=== PATIENT | male | born 1985 | race Caucasian/White ===

== ENCOUNTER 2017-05-13 11:41 | Emergency (ER) | payer OTHER, BC ==
[~2017-05-13] VITALS: Ht 180.3 cm; Wt 79.4 kg
[~2017-05-13 11:41] MED LIST: KEFLEX500 MG PO
[2017-05-13] MEDS ORDERED: NAPROSYN500 MG PO (12:06)
[2017-05-13] MEDS ORDERED: KEFLEX500 M1 PO (12:06)
== END 2017-05-13 12:30 | disposition home or self-care (01) ==
LOC: ED 11:41
DX: S61.012A Laceration without foreign body of left thumb without damage to nail, initial encounter (principal); R03.0 Elevated blood-pressure reading, without diagnosis of hypertension; W27.8XXA Contact with other nonpowered hand tool, initial encounter; Y93.89 Activity, other specified; Y92.89 Other specified places as the place of occurrence of the external cause; Y99.8 Other external cause status

== ENCOUNTER → 2017-07-19 | Outpatient (CLI) | payer BC ==
[~2017-07-19] MED LIST changes: +KEFLEX500 M1 PO; +NAPROSYN500 MG PO
[2017-07-19 09:23] LABS: BASO # 0.1 10*3/uL (0.0-0.1); BASO % 0.7 % (0.0-1.0); EOS # 0.4 10*3/uL (0.0-0.4); HEMOGLOBIN 15.1 g/dl (14.0-18.0); LYMPH # 3.1 10*3/uL (1.3-4.4); LYMPH % 37.7 % (27.0-41.0); MEAN CELL VOLUME 95.5 fl (80.0-94.0); MEAN CORPUSCULAR HGB 32.1 pg (27.0-31.0); MEAN CORPUSCULAR HGB CONC 33.6 g/dl (33.0-37.0); MEAN PLATELET VOLUME 9.8 fl (9.6-12.3); MONO # 0.8 10*3/uL (0.1-1.0); MONO % 10.1 % (3.0-9.0); NEUT # 3.8 10*3/uL (2.3-7.9); NEUT % 46.4 % (47.0-73.0); PLATELET COUNT AUTOMATED 237 10*3/uL (130-400); RED BLOOD COUNT 4.71 10*6/uL (4.50-5.90); RED CELL DISTRI WIDTH 12.2 % (0-14.5); WHITE BLOOD COUNT 8.2 10*3/uL (4.8-10.8)
[2017-07-19 09:26] LABS: ALBUMIN 3.9 gm/dl (3.1-4.5); BILIRUBIN, DIRECT < 0.1 mg/dL (0.0-0.2); BUN 18 mg/dl (7-24); CHOLESTEROL 149 mg/dL (<200); CREATININE 1.07 mg/dL (0.70-1.30); SGOT/AST 18 IU/L (3-35); SGPT/ALT 22 U/L (12-78)
[2017-07-19 09:36] LABS: ALKALINE PHOSPHATASE 67 U/L (45-117); FREE T4 1.02 ng/dl (0.76-1.46); THYROID STIM HORMONE (HS) 0.792 uIU/ml (0.358-4.75); TOTAL PROTEIN 7.5 gm/dL (6.4-8.2)
== END | disposition home or self-care (01) ==
LOC: LAB 07:53
PROVIDERS: Internal Medicine
DX: E55.9 Vitamin D deficiency, unspecified (principal); R53.83 Other fatigue; R41.3 Other amnesia; Z79.1 Long term (current) use of non-steroidal anti-inflammatories (NSAID)

== ENCOUNTER → 2017-10-05 | Outpatient (CLI) | payer BC | END | disposition home or self-care (01) | LOC: RESCLI 00:35 | DX: F90.0 Attention-deficit hyperactivity disorder, predominantly inattentive type (principal) ==

== ENCOUNTER → 2017-11-03 | Outpatient (CLI) | payer BC | END | disposition home or self-care (01) | LOC: RESCLI 01:37 | DX: Z00.01 Encounter for general adult medical examination with abnormal findings (principal); F90.0 Attention-deficit hyperactivity disorder, predominantly inattentive type; Z87.891 Personal history of nicotine dependence; Z79.899 Other long term (current) drug therapy ==

== ENCOUNTER → 2017-12-01 | Outpatient (CLI) | payer BC | END | disposition home or self-care (01) | LOC: RESCLI 04:34 | DX: Z00.00 Encounter for general adult medical examination without abnormal findings (principal); F90.0 Attention-deficit hyperactivity disorder, predominantly inattentive type; F12.90 Cannabis use, unspecified, uncomplicated ==

== ENCOUNTER → 2018-03-08 | Outpatient (CLI) | payer BC | END | disposition home or self-care (01) | LOC: RESCLI 07:45 | DX: Z76.0 Encounter for issue of repeat prescription (principal); F90.0 Attention-deficit hyperactivity disorder, predominantly inattentive type; Z88.8 Allergy status to other drugs, medicaments and biological substances; Z79.899 Other long term (current) drug therapy ==

== ENCOUNTER → 2018-03-31 | Outpatient (CLI) | payer BC ==
[2018-03-31 12:09] LABS: BILIRUBIN NEGATIVE (NEGATIVE); BLOOD TRACE-INTACT (NEGATIVE); CLARITY CLEAR (CLEAR); COLOR YELLOW (YELLOW); GLUCOSE NEGATIVE (NEGATIVE); KETONE NEGATIVE (NEGATIVE); LEUKO ESTERASE NEGATIVE (NEGATIVE); NITRITE NEGATIVE (NEGATIVE); SPECIFIC GRAVITY 1.025 (1.005-1.030); UROBILINOGEN 0.2 E.U./dl (0.2-1.0)
[2018-03-31 12:18] LABS: BACTERIA TRACE; MUCOUS 1+; RBC 31-40 rbc/hpf (0-2)
== END | disposition home or self-care (01) ==
LOC: LAB 11:53
PROVIDERS: Emergency Medicine
DX: R10.9 Unspecified abdominal pain (principal)

== ENCOUNTER → 2018-04-03 | Outpatient (CLI) | payer BC | END | disposition home or self-care (01) | LOC: CT 16:00 | DX: Q63.1 Lobulated, fused and horseshoe kidney (principal) ==

== ENCOUNTER → 2018-04-03 | Outpatient (CLI) | payer BC ==
[2018-04-03 13:45] LABS: BASO # 0.1 10*3/uL (0.0-0.1); BASO % 0.6 % (0.0-1.0); EOS # 0.4 10*3/uL (0.0-0.4); EOS % 3.8 % (1.0-4.0); HEMATOCRIT 45.7 % (42.0-52.0); HEMOGLOBIN 15.9 g/dl (14.0-18.0); LYMPH # 3.1 10*3/uL (1.3-4.4); LYMPH % 32.8 % (27.0-41.0); MEAN CORPUSCULAR HGB 33.4 pg (27.0-31.0); MEAN CORPUSCULAR HGB CONC 34.8 g/dl (33.0-37.0); MEAN PLATELET VOLUME 9.4 fl (9.6-12.3); MONO # 0.8 10*3/uL (0.1-1.0); MONO % 8.3 % (3.0-9.0); NEUT # 5.1 10*3/uL (2.3-7.9); PLATELET COUNT AUTOMATED 254 10*3/uL (130-400); RED BLOOD COUNT 4.76 10*6/uL (4.50-5.90); RED CELL DISTRI WIDTH 12.1 % (0-14.5); WHITE BLOOD COUNT 9.5 10*3/uL (4.8-10.8)
[2018-04-03 14:02] LABS: ALBUMIN 3.7 gm/dl (3.1-4.5); ALKALINE PHOSPHATASE 65 U/L (45-117); BUN 13 mg/dl (7-24); CHLORIDE 106 mmol/L (98-107); CREATININE 1.12 mg/dL (0.70-1.30); POTASSIUM 4.1 mmol/L (3.5-5.1); SGOT/AST 12 IU/L (3-35); SGPT/ALT 23 U/L (12-78); SODIUM 140 mmol/L (136-145); TOTAL PROTEIN 7.1 gm/dL (6.4-8.2)
== END | disposition home or self-care (01) ==
LOC: LAB 13:17
PROVIDERS: Emergency Medicine
DX: R31.9 Hematuria, unspecified (principal); R10.9 Unspecified abdominal pain

== ENCOUNTER → 2018-04-23 | Outpatient (CLI) | payer BC ==
[2018-04-23 17:21] LABS: BILIRUBIN NEGATIVE (NEGATIVE); BLOOD 1+ (NEGATIVE); CLARITY CLEAR (CLEAR); COLOR YELLOW (YELLOW); GLUCOSE NEGATIVE (NEGATIVE); KETONE NEGATIVE (NEGATIVE); LEUKO ESTERASE NEGATIVE (NEGATIVE); NITRITE NEGATIVE (NEGATIVE); SPECIFIC GRAVITY 1.015 (1.005-1.030); UROBILINOGEN 0.2 E.U./dl (0.2-1.0)
[2018-04-23 17:28] LABS: BACTERIA TRACE; WBC 0-2 wbc/hpf (0-5)
== END | disposition home or self-care (01) ==
LOC: LAB 17:02
PROVIDERS: Emergency Medicine
DX: R31.9 Hematuria, unspecified (principal)

== ENCOUNTER → 2018-10-03 | Outpatient (CLI) | payer BC | END | disposition home or self-care (01) | LOC: RESCLI 01:25 | DX: Z76.0 Encounter for issue of repeat prescription (principal); F90.0 Attention-deficit hyperactivity disorder, predominantly inattentive type; Z79.899 Other long term (current) drug therapy; Z88.8 Allergy status to other drugs, medicaments and biological substances ==

== ENCOUNTER → 2018-12-26 | Outpatient (CLI) | payer SELFPAY | END | disposition home or self-care (01) | LOC: RESCLI 00:42 | DX: F90.0 Attention-deficit hyperactivity disorder, predominantly inattentive type (principal); Z76.0 Encounter for issue of repeat prescription; Z79.899 Other long term (current) drug therapy ==

== ENCOUNTER → 2019-01-30 | Outpatient (CLI) | payer BC | END | disposition home or self-care (01) | LOC: RESCLI 01:38 | DX: F90.0 Attention-deficit hyperactivity disorder, predominantly inattentive type (principal); Z76.0 Encounter for issue of repeat prescription; Z79.899 Other long term (current) drug therapy ==

== ENCOUNTER → 2019-12-24 | Outpatient (CLI) | payer BC | END | disposition home or self-care (01) | LOC: COVID19 10:16 | PROVIDERS: ATTEND Emergency Medicine | DX: R05 Cough (principal); Z20.828 Contact with and (suspected) exposure to other viral communicable diseases ==

== ENCOUNTER → 2021-01-20 | Outpatient (CLI) | payer BC | END | disposition home or self-care (01) | LOC: COVID19 16:04 | PROVIDERS: ATTEND Student in an Organized Health Care Education/Training Program | DX: Z11.52 Encounter for screening for COVID-19 (principal) ==

== ENCOUNTER → 2021-11-26 | Outpatient (CLI) | payer BC | END | disposition home or self-care (01) | LOC: RESCLI 02:17 | PROVIDERS: ATTEND Internal Medicine | DX: F90.0 Attention-deficit hyperactivity disorder, predominantly inattentive type (principal); Z79.899 Other long term (current) drug therapy ==

== ENCOUNTER 2023-11-28 00:44 | Emergency (ER) | payer BC ==
[~2023-11-28] VITALS: Ht 175.2 cm; Wt 68.0 kg
[2023-11-28 01:11] LABS: BASO # 0.1 10*3/uL (0.0-0.1); BASO % 0.6 % (0.0-1.0); EOS # 0.3 10*3/uL (0.0-0.4); EOS % 1.8 % (1.0-4.0); HEMATOCRIT 43.7 % (42.0-52.0); LYMPH # 3.8 10*3/uL (1.3-4.4); LYMPH % 20.2 % (27.0-41.0); MEAN CORPUSCULAR HGB 34.3 pg (27.0-31.0); MEAN PLATELET VOLUME 8.7 fl (9.6-12.3); MONO # 1.5 10*3/uL (0.1-1.0); MONO % 7.8 % (3.0-9.0); NEUT # 12.9 10*3/uL (2.3-7.9); NEUT % 69.1 % (47.0-73.0); PLATELET COUNT AUTOMATED 222 10*3/uL (130-400); RED BLOOD COUNT 4.46 10*6/uL (4.50-5.90); RED CELL DISTRI WIDTH 12.9 % (0-14.5); WHITE BLOOD COUNT 18.7 10*3/uL (4.8-10.8)
[2023-11-28 01:27] LABS: BUN 14 mg/dl (9-23); CHLORIDE 106 mmol/L (98-107); CPK 359 U/L (34-171); POTASSIUM 3.5 mmol/L (3.4-5.1)
[2023-11-28] MEDS ORDERED: methylPREDNISolone sod succ 125 MG VIAL IV ONE (02:00)
[2023-11-28] MEDS ORDERED: SODIUM CHLORIDE 0.9% 1,000 ML IV ONE ×2 (02:00)
== END 2023-11-28 04:51 | disposition home or self-care (01) ==
LOC: ED 00:44
PROVIDERS: Internal Medicine
DX: M79.671 Pain in right foot (principal); M79.604 Pain in right leg; N17.9 Acute kidney failure, unspecified; D72.829 Elevated white blood cell count, unspecified; D75.89 Other specified diseases of blood and blood-forming organs

== ENCOUNTER 2024-12-25 02:01 | Emergency (ER) | payer BC ==
[~2024-12-25] VITALS: Ht 177.8 cm; Wt 77.1 kg
[2024-12-25] MEDS ORDERED: Ondansetron Hydrochloride 4 MG/2 ML VIAL IV ONE (02:20)
[2024-12-25 02:25] LABS: BASO # 0.1 10*3/uL (0.0-0.1); BASO % 0.5 % (0.0-1.0); EOS # 0.4 10*3/uL (0.0-0.4); EOS % 1.5 % (1.0-4.0); MEAN CELL VOLUME 97.3 fl (80.0-94.0); MEAN CORPUSCULAR HGB 33.5 pg (27.0-31.0); MEAN PLATELET VOLUME 8.9 fl (9.6-12.3); MONO # 1.3 10*3/uL (0.1-1.0); MONO % 5.4 % (3.0-9.0); NEUT # 18.6 10*3/uL (2.3-7.9); NEUT % 78.4 % (47.0-73.0); NUCLEATED RED BLOOD CELL 0.0 % (0.0-0.0); NUCLEATED RED BLOOD CELL 0.0 10*3/uL (0.0-0.0); PLATELET COUNT AUTOMATED 251 10*3/uL (130-400); RED CELL DISTRI WIDTH 13.5 % (0-14.5)
[2024-12-25 02:50] LABS: BUN 16 mg/dl (9-23); SGPT/ALT 27 U/L (5-49)
[2024-12-25 03:08] LABS: BILIRUBIN Negative (Negative); BLOOD 3+ (Negative); CLARITY Clear (Clear); COLOR Yellow (Yellow); KETONE Trace (Negative); LEUKO ESTERASE Negative (Negative); NITRITE Negative (Negative); PH 5.5 (4.5-8.0); SPECIFIC GRAVITY 1.025 (1.001-1.030); UROBILINOGEN 1.0 E.U./dl (0.0-1.0)
[2024-12-25 03:15] LABS: RBC 21-30 rbc/hpf (0-2)
[2024-12-25 03:16] LABS: URINE AMPHETAMINES Positive (1000ng/ml); URINE BARBITURATES Negative (200ng/ml); URINE BENZODIAZEPINES Negative (200ng/ml); URINE CANNABINOIDS (THC) Positive (50ng/ml); URINE COCAINE Negative (300ng/ml); URINE METHADONE Negative (300ng/ml); URINE OPIATES Positive (300ng/ml); URINE PHENCYCLIDINE Negative (25ng/ml)
[2024-12-25] MEDS ORDERED: diazePAM 10 MG/2 ML SYR IV ONE (03:45)
[2024-12-25] MEDS ORDERED: FLOMAX0.4 MG PO (04:40)
[2024-12-25] MEDS ORDERED: Ondansetron4 MG PO (04:40)
[2024-12-25] MEDS ORDERED: HYDROCODONE-AC1 EAC1 PO (04:40)
== END 2024-12-25 04:43 | disposition home or self-care (01) ==
LOC: ED 02:01
PROVIDERS: Internal Medicine
DX: N13.2 Hydronephrosis with renal and ureteral calculous obstruction (principal); Z87.442 Personal history of urinary calculi

== ENCOUNTER 2025-04-23 13:29 | Emergency (ER) | payer BC ==
[~2025-04-23] VITALS: Ht 180.3 cm; Wt 70.3 kg
[~2025-04-23 13:29] MED LIST changes: +FLOMAX0.4 MG PO; +HYDROCODONE-AC1 EAC1 PO; +Ondansetron4 MG PO
[2025-04-23] MEDS ORDERED: MEDROL DOSEPAK4 MG PO (14:26)
[2025-04-23] MEDS ORDERED: AMOX-CLAV 875-1 EACH PO (14:26)
[2025-04-23] MEDS ORDERED: Bacitracin Zinc 14 GM TUBE T ONE (14:30)
== END 2025-04-23 14:38 | disposition home or self-care (01) ==
LOC: ED 13:29
DX: S01.81XA Laceration without foreign body of other part of head, initial encounter (principal); J01.90 Acute sinusitis, unspecified; W21.09XA Struck by other hit or thrown ball, initial encounter; Y93.89 Activity, other specified; Y92.89 Other specified places as the place of occurrence of the external cause; Y99.8 Other external cause status